=== PATIENT | male | born 2000 | race Caucasian/White ===

== ENCOUNTER 2020-10-10 04:54 | Emergency (ER) | payer OTHER ==
[~2020-10-10] VITALS: Ht 190.5 cm; Wt 83.1 kg
[2020-10-10] MEDS ORDERED: KETOROLAC 30 MG/1 ML IM ONE (05:30)
[2020-10-10] MEDS ORDERED: ONDANSETRON ODT 4 MG PO ONE (05:30)
[2020-10-10] MEDS ORDERED: ONDANSETRON ODT 4 MG ONE (05:44)
[2020-10-10] MEDS ORDERED: KETOROLAC 30 MG/1 ML ONE (05:45)
[2020-10-10] MEDS ORDERED: PLEASE ENTER ALLERGIES MC SCH (06:00)
[2020-10-10 06:08] VITALS: BP 122/78
[2020-10-10 06:37] LABS: BASOPHILS % (AUTO) 1 % (0-1); EOSINOPHILS % (AUTO) 2 % (1-7); LYMPHOCYTES % (AUTO) 42 % (22-44); MEAN CORPUSCULAR HEMOGLOBIN 30.8 pg (27.5-34.5); MEAN CORPUSCULAR HGB CONC 33.8 g/dL (33.2-36.2); MEAN PLATELET VOLUME 8.2 fL (7.4-10.4); MONOCYTES % (AUTO) 9 % (2-9); NEUTROPHILS % (AUTO) 47 % (42-75); PLATELET COUNT 180 x10^3/uL (130-400); RED BLOOD COUNT 4.82 x10^6/uL (4.38-5.82); RED CELL DISTRIBUTION WIDTH 12.1 % (9.4-14.8)
[2020-10-10 06:40] LABS: MD NO
[2020-10-10 06:47] LABS: ALBUMIN 3.8 g/dL (3.4-5.0); ANION GAP 5 mmol/L (5-15); CALCIUM 8.7 mg/dL (8.5-10.1); CHLORIDE 104 mmol/L (98-107); CREATININE 0.86 mg/dL (0.7-1.3)
--- NOTE | 2020-10-10 07:06 | NUR ---
Patient given discharge instructions and they have confirmed that they understand the instructions. Patient ambulatory with steady gait.
== END 2020-10-10 07:16 | disposition home or self-care (01) ==
LOC: ED 06:01
DX: G44.209 Tension-type headache, unspecified, not intractable (principal); E10.65 Type 1 diabetes mellitus with hyperglycemia; R42 Dizziness and giddiness; R11.0 Nausea; R06.02 Shortness of breath; Z77.018 Contact with and (suspected) exposure to other hazardous metals; Z77.098 Contact with and (suspected) exposure to other hazardous, chiefly nonmedicinal, chemicals
CPT/HCPCS: 71045; 80048; 82040; 82962; 85025; 99284; Q0162